=== PATIENT | female | born 1990 | race Caucasian/White ===

== ENCOUNTER 2025-05-21 20:45 | Emergency (ER) | payer SELFPAY ==
[~2025-05-21] VITALS: Ht 162.6 cm; Wt 100.0 kg
[~2025-05-21 20:45] MED LIST: PRENATAL ONE T1 EACH PO
[2025-05-21 21:19] VITALS: O2SAT 99
[2025-05-22] MEDS ORDERED: BACITRACIN ZINC OINT UDPKT TOP ONE (00:30)
[2025-05-22] MEDS ORDERED: LIDOCAINE HCL/PF 1% 10 MG/ML 5ML VIAL INFIL ONE (00:30)
[2025-05-22] MEDS: TETANUS, DIPHTHERIA, PERTUSSIS VAC/PF 0.5ML (>10YR OLD) IM ONE (00:48)
[2025-05-22] MEDS ORDERED: AMOX1TAB16 MT (02:34)
[2025-05-22 02:49] VITALS: BP 119/64; PULSE 55; RESP 13; TEMP 36.6; O2SAT 100
== END 2025-05-22 02:52 | disposition home or self-care (01) ==
LOC: ER 20:45
DX: S71.112A Laceration without foreign body, left thigh, initial encounter (principal); Z98.890 Other specified postprocedural states; W54.0XXA Bitten by dog, initial encounter; Y93.89 Activity, other specified; Y92.89 Other specified places as the place of occurrence of the external cause; Y99.8 Other external cause status
CPT/HCPCS: 99283; 90715; 12001; 90471; J2003; Z7610 ×2